=== PATIENT | female | born 1960 | race Caucasian/White ===

== ENCOUNTER 2018-02-03 12:02 | Inpatient (IN) | payer BC ==
[~2018-02-03] VITALS: Ht 157.5 cm; Wt 76.5 kg
[2018-04-28] VITALS (13 sets, daily range): BP systolic 104–126; BP diastolic 55–77; PULSE 48–78; TEMP 97.1–98.7
[2018-04-28] MEDS ORDERED: SYNTHROID0.075 MG/T PO (06:06)
[2018-04-28] MEDS ORDERED: TOPAMAX50 MG PO (06:06)
[2018-04-28] MEDS ORDERED: MIRAPEX 0.0.125 MG/T PO (06:07)
[2018-04-28] MEDS ORDERED: BRINTELLIX20 PO (06:08)
[2018-04-28] MEDS ORDERED: REXULTI0.5 MG PO (06:08)
[2018-04-28] MEDS ORDERED: FERROUS SU325 MG/TAB PO (06:09)
[2018-04-28] MEDS ORDERED: IMITREX100 MG PO (06:09)
[2018-04-28] MEDS ORDERED: CLARITIN 1010 MG/TAB PO (06:10)
[2018-04-28] MEDS ORDERED: CALCIUM/MAGNESI1 T17 PO (06:11)
[2018-04-29 04:57] VITALS: BP 105/67; PULSE 56; TEMP 98.1
[2018-04-29] MEDS ORDERED: XARELTO10 MG PO (07:22)
[2018-04-29] MEDS ORDERED: NORCO 325 MG-7.1 TAB PO (07:23)
[2018-04-29] MEDS ORDERED: OXY IR5 MG PO (07:23)
[2018-04-29] MEDS ORDERED: SENOKOT8.6 MG PO (07:24)
[2018-04-29] MEDS ORDERED: TYLENOL 500MG500 MG PO (07:24)
[2018-04-29 07:49] VITALS: BP 90/64; PULSE 60; TEMP 98
[2018-04-29 08:08] LABS: HEMOGLOBIN 12.1 g/dl (12.5-16.0)
[2018-04-29 08:12] LABS: HEMATOCRIT 36.9 % (37.0-47.0)
[2018-04-29 12:13] VITALS: BP 110/62; PULSE 48; TEMP 98
== END 2018-04-29 14:15 | disposition home or self-care (01) | DRG 489 ==
LOC: JCC 04-28 05:12 → SURG 04-28 07:30 → JCC 04-29 14:15
PROVIDERS: Orthopaedic Surgery
PROC: 0SBC0ZZ Excision of Right Knee Joint, Open Approach (ICD-10-PCS; 2018-04-28)
PROC: 0SUV09Z Supplement Right Knee Joint, Tibial Surface with Liner, Open Approach (ICD-10-PCS; 2018-04-28)
PROC: 0SPC09Z Removal of Liner from Right Knee Joint, Open Approach (ICD-10-PCS; principal; 2018-04-28 07:30)
DX: T84.022A Instability of internal right knee prosthesis, initial encounter (principal); Y79.2 Prosthetic and other implants, materials and accessory orthopedic devices associated with adverse incidents; Z86.718 Personal history of other venous thrombosis and embolism; F32.9 Major depressive disorder, single episode, unspecified; M81.0 Age-related osteoporosis without current pathological fracture; E03.9 Hypothyroidism, unspecified; T84.84XA Pain due to internal orthopedic prosthetic devices, implants and grafts, initial encounter; M23.8X1 Other internal derangements of right knee; M65.88 Other synovitis and tenosynovitis, other site
CPT/HCPCS: A9284; J0690; J1100; J1885; J2250; J2405; J2704; J7120

== ENCOUNTER → 2018-04-21 | Outpatient (CLI) | payer BC ==
[2018-04-21 16:26] LABS: HIV 1/2 Antibodies Non-Reactive; HIV-1p24 Antigen Non-Reactive
== END ==
LOC: COL.LAB 15:25
PROVIDERS: Orthopaedic Surgery
DX: Z01.812 Encounter for preprocedural laboratory examination (principal)

== ENCOUNTER → 2019-03-17 | Outpatient (CLI) | payer BC ==
[~2019-03-17] MED LIST: BRINTELLIX20 PO; CALCIUM/MAGNESI1 T17 PO; CLARITIN 1010 MG/TAB PO; FERROUS SU325 MG/TAB PO; IMITREX100 MG PO; MIRAPEX 0.0.125 MG/T PO; NORCO 325 MG-7.1 TAB PO; OXY IR5 MG PO; REXULTI0.5 MG PO; SENOKOT8.6 MG PO; SYNTHROID0.075 MG/T PO; TOPAMAX50 MG PO; TYLENOL 500MG500 MG PO; XARELTO10 MG PO
== END ==
LOC: COL.RAD 13:37
DX: M71.372 Other bursal cyst, left ankle and foot (principal); M19.072 Primary osteoarthritis, left ankle and foot
CPT/HCPCS: J3301; Q9967